=== PATIENT | male | born 1995 | race Caucasian/White ===

== ENCOUNTER → 2021-07-11 | Outpatient (CLI) | payer BC ==
[~2021-07-11] MED LIST: KEFLEX500 M1 PO; KEFLEX500 MG PO
== END ==
LOC: RAD 17:27
PROVIDERS: ATTEND Family Medicine
DX: R06.2 Wheezing (principal); R05.8 Other specified cough

== ENCOUNTER 2024-10-03 18:35 | Emergency (ER) | payer BC ==
[~2024-10-03] VITALS: Ht 175.2 cm; Wt 77.1 kg
[2024-10-03 18:49] VITALS: BP 149/77
[2024-10-03 20:40] LABS: BILIRUBIN Negative (Negative); BLOOD Negative (Negative); CLARITY Clear (Clear); COLOR Yellow (Yellow); KETONE Negative (Negative); LEUKO ESTERASE Negative (Negative); NITRITE Negative (Negative); PH 7.0 (4.5-8.0); SPECIFIC GRAVITY 1.010 (1.001-1.030); UROBILINOGEN 0.2 E.U./dl (0.0-1.0)
[2024-10-03 21:23] LABS: WBC 0-2 wbc/hpf (0-5)
[2024-10-03] MEDS ORDERED: CIPRO500 MG PO (22:50)
[2024-10-03] MEDS ORDERED: NAPROSYN500 MG PO (22:50)
[2024-10-03] MEDS ORDERED: Ciprofloxacin Hydrochloride 500 MG TAB PO ONE (22:55)
== END 2024-10-03 22:55 | disposition home or self-care (01) ==
LOC: ED 18:35
PROVIDERS: Nurse Practitioner Family
DX: N45.1 Epididymitis (principal)

== ENCOUNTER 2024-12-19 16:47 | Emergency (ER) | payer BC ==
[~2024-12-19] VITALS: Ht 175.2 cm; Wt 74.8 kg
[~2024-12-19 16:47] MED LIST changes: +CIPRO500 MG PO; +NAPROSYN500 MG PO
[2024-12-19 17:06] VITALS: BP 144/75
[2024-12-19 18:21] LABS: BASO # 0.0 10*3/uL (0.0-0.1); BASO % 0.4 % (0.0-1.0); EOS # 0.1 10*3/uL (0.0-0.4); EOS % 1.0 % (1.0-4.0); MEAN CELL VOLUME 87.8 fl (80.0-94.0); MEAN CORPUSCULAR HGB 30.3 pg (27.0-31.0); MEAN PLATELET VOLUME 10.2 fl (9.6-12.3); MONO # 0.7 10*3/uL (0.1-1.0); MONO % 9.0 % (3.0-9.0); NEUT # 5.6 10*3/uL (2.3-7.9); NEUT % 78.0 % (47.0-73.0); NUCLEATED RED BLOOD CELL 0.0 % (0.0-0.0); NUCLEATED RED BLOOD CELL 0.0 10*3/uL (0.0-0.0); PLATELET COUNT AUTOMATED 268 10*3/uL (130-400); RED CELL DISTRI WIDTH 11.9 % (0-14.5)
[2024-12-19 18:41] LABS: BUN 10 mg/dl (9-23)
[2024-12-19] MEDS ORDERED: POTASSIUM CHLORIDE 20 MEQ TAB PO ONE (19:10)
== END 2024-12-19 20:03 | disposition home or self-care (01) ==
LOC: ED 16:47
PROVIDERS: Nurse Practitioner Family
DX: R59.0 Localized enlarged lymph nodes (principal)